=== PATIENT | male | born 1965 | race Caucasian/White ===

== ENCOUNTER 2021-11-30 12:46 | Observation (INO) ==
[2021-11-30] MEDS ORDERED: D5% in Water 1,000 ML IVC PRN (15:27)
[2021-11-30] MEDS ORDERED: Ondansetron ODT 4 MG TAB.RAPDIS SL PRN (15:27)
[2021-11-30] MEDS ORDERED: *HR* Dextrose 50 % in Water (Syg) 50 ML SYRINGE IVP PRN (15:27)
[2021-11-30] MEDS ORDERED: Acetaminophen 325 MG TABLET PO PRN (15:27)
[2021-11-30] MEDS ORDERED: Naloxone 0.4 MG/ML INJ IVP PRN (15:27)
[2021-11-30] MEDS ORDERED: Dextrose 4 GM Chewable Tablets PO PRN ×2 (15:27)
[2021-11-30] MEDS: Insulin LISPRO 300 UNITS/3 ML VIAL SUBQ SCH (17:02)
[2021-11-30] MEDS: 0.9 % Sodium Chloride 1,000 ML IVC SCH (17:02)
[2021-12-01] MEDS: 0.9 % Sodium Chloride 1,000 ML IVC SCH (02:33)
[2021-12-01 03:58] LABS: Hematocrit 35.6 % (37.5-50.1); Hemoglobin 10.8 g/dL (12.9-16.9); Mean Corpuscular HGB Conc 30.3 g/dL (31.6-35.5); Mean Corpuscular Hemoglobin 25.7 pg (28.0-33.3); Mean Corpuscular Volume 84.6 fL (83.0-100.0); Mean Platelet Volume 9.6 fL (9.4-12.4); Platelet Count 177 K/mcL (140-400); Red Blood Count 4.21 M/mcL (4.19-5.50); Red Cell Distribution Width 18.4 % (11.5-14.5); White Blood Count 5.6 K/mcL (4.3-11.1)
[2021-12-01 04:29] LABS: Alanine Aminotransferase 34 Units/L (7-52); Albumin 3.4 g/dL (3.5-5.7); Albumin/Globulin Ratio 1.2 (1.1-2.2); Alkaline Phosphatase 76 Units/L (34-104); Aspartate Amino Transferase 25 Units/L (13-39); BUN/Creatinine Ratio 16 (6-26); Bilirubin,Total 0.3 mg/dL (0.3-1.0); Blood Urea Nitrogen 14 mg/dL (6-20); Calcium 8.7 mg/dL (8.6-10.3); Carbon Dioxide 30 mEq/L (23-29); Chloride 105 mEq/L (98-107); Chol/HDL Ratio 3.7 (0-4.9); Cholesterol 157 mg/dL (< 200); Globulin 2.8 g/dL (2.4-3.5); Glucose 101 mg/dL (70-105); HDL Cholesterol 42 mg/dL (40-59); LDL Cholesterol,Calculated 96 mg/dL (< 100); Magnesium 1.8 mg/dL (1.6-2.6); Osmolality,Calculated 289 (280-300); Potassium 3.9 mEq/L (3.5-5.1); Sodium 139 mEq/L (136-145); Total Protein 6.2 g/dL (6.4-8.9); Triglycerides 96 mg/dL (< 150); eGFR For African Americans > 60 (> 60); eGFR For Non-African Americans > 60 (> 60)
[2021-12-01 04:33] LABS: Thyroid Stimulating Hormone 1.675 mcIU/mL (0.340-5.600)
[2021-12-01 07:26] VITALS: RESP 16
[2021-12-01] MEDS: Insulin LISPRO 300 UNITS/3 ML VIAL SUBQ SCH ×2 (07:39→11:22)
[2021-12-01] MEDS ORDERED: Cyanocobalamin (B-12) 1,000 MCG/ML VIAL IM ONE (09:54)
[2021-12-01 10:04] LABS: Estimated Average Glucose 126 mg/dl
[2021-12-01 14:33] VITALS: BP 149/97; PULSE 67; TEMP 97.6; O2SAT 97
== END 2021-12-01 14:35 | disposition other institution (70) ==
LOC: INPPIK
PROVIDERS: ADMIT Internal Medicine; ATTEND Internal Medicine